=== PATIENT | female | born 1985 | race Two or more races ===

== ENCOUNTER 2017-06-22 16:58 | Emergency (ER) | payer MEDICAID, OTHER ==
[~2017-06-22] VITALS: Ht 152.4 cm; Wt 60.8 kg
--- NOTE | 2017-06-22 17:39 | NUR ---
DR JALLOH AT BEDSIDE FOR EVAL.
[2017-06-22] MEDS ORDERED: IV NS 0.9% 1,000 ML BAG IV ONE (18:00)
[2017-06-22] MEDS ORDERED: METOCLOPRAMIDE HCL 10 MG/2 ML VIAL IV ONE (18:00)
--- NOTE | 2017-06-22 18:00 | NUR ---
IV LINE STARTED BLOOD DRAWN AND SENT TO LAB.
[2017-06-22 18:03] LABS: BASOPHILS % (AUTO) 0.3 % (0.0-2.0); EOSINOPHILS # (AUTO) 0.3 /CMM (0.0-0.7); EOSINOPHILS % (AUTO) 2.6 % (0.0-6.0); HEMATOCRIT 41 % (33-45); HEMOGLOBIN 13.3 g/dL (11.5-14.8); LYMPHOCYTES # (AUTO) 3.9 /CMM (0.8-4.8); LYMPHOCYTES % (AUTO) 40.1 % (20.0-44.0); MEAN CORPUSCULAR HEMOGLOBIN 26 PG (26.0-33.0); MEAN CORPUSCULAR HGB CONC 33 g/dl (31.0-36.0); MEAN CORPUSCULAR VOLUME 80 fL (82-100); MONOCYTES # (AUTO) 0.7 /CMM (0.1-1.30); MONOCYTES % (AUTO) 7.1 % (2.0-12.0); NEUTROPHILS # (AUTO) 4.9 /CMM (1.8-8.9); NEUTROPHILS % (AUTO) 49.9 % (43.0-81.0); PLATELET COUNT (AUTO) 297 /CMM (150-450); RDW COEFFICIENT OF VARIATION 12.5 (11.5-15.0); RED BLOOD CELL COUNT(AUTO) 5.11 MIL/uL (4.0-5.2); WHITE BLOOD COUNT (AUTO) 9.8 K/uL (4.3-11.0)
[2017-06-22] MEDS ORDERED: METOCLOPRAMIDE HCL 10 MG/2 ML VIAL ONE (18:04)
[2017-06-22 18:10] LABS: CALCIUM, SERUM 9.2 mg/dL (8.5-10.1); CREATININE 0.6 mg/dL (0.6-1.3); POTASSIUM 3.8 mmol/L (3.5-5.1)
--- NOTE | 2017-06-22 18:18 | NUR ---
PT TO RADIOLOGY FOR HEAD CT SCAN VIA [facility].
--- NOTE | 2017-06-22 19:27 | NUR ---
Note jimmy in EDM - 06/22/17 at 1928 by JUANY Patient does not wish to proceed with medical care recommended by Dr. Fenton. Patient given information related to possible complications, up to and including , which could occur as a result of leaving the hospital at this time. Patient verbalizes understanding of risks involved due to leaving against medical advice. Patient has signed AMA form.IV removed. Catheter intact and site benign. Pressure and 4x4 applied to site. No bleeding noted.Patient discharged to home in stable condition. Written and verbal after care instructions given. Patient verbalizes understanding of instruction.
--- NOTE | 2017-06-22 19:27 | NUR ---
PT. VERBALIZED UNDERSTANDING OF AFTERCARE INSTRUCTIONS.Patient discharged to home in stable condition. Written and verbal after care instructions given. Patient verbalizes understanding of instruction. IV removed. Catheter intact and site benign. Pressure and 4x4 applied to site. No bleeding noted.
[2017-06-22 19:29] VITALS: BP 133/72
== END 2017-06-22 19:30 | disposition home or self-care (01) ==
LOC: ER 17:03
DX: R51 Headache (principal); R42 Dizziness and giddiness; R11.2 Nausea with vomiting, unspecified; H53.149 Visual discomfort, unspecified
CPT/HCPCS: 36415; 70450; 80048; 84703; 85025; 96374; 99284; A4606; J2765; J7030; Z7610

== ENCOUNTER 2018-04-25 10:23 | Emergency (ER) | payer MEDICAID ==
[~2018-04-25] VITALS: Ht 152.4 cm; Wt 57.2 kg
[2018-04-25 10:23] VITALS: BP 112/75
== END 2018-04-25 11:29 | disposition home or self-care (01) ==
LOC: ER 10:24
DX: G62.9 Polyneuropathy, unspecified (principal)
CPT/HCPCS: 99283; A4606; Z7610

== ENCOUNTER 2021-11-15 00:12 | Emergency (ER) | payer MEDICAID, OTHER ==
[~2021-11-15] VITALS: Ht 165.1 cm; Wt 63.5 kg
--- NOTE | 2021-11-15 00:25 | NUR ---
NENA. DIZZYNESS - ROOM SPINNING AND MID STERNAL CP NON RADIATING X 2300. PATIENT ALERT AND ORIENTED X3. AMBULATORY WITH NON LABORED BREATHING IN BED 11 ON MONITOR.
--- NOTE | 2021-11-15 00:45 | NUR ---
BLOOD COLLECTED AND SENT TO LAB
--- NOTE | 2021-11-15 00:50 | NUR ---
@ BEDSIDE FOR EVAL.
[2021-11-15] MEDS ORDERED: ONDANSETRON HCL/PF 4 MG/2 ML VIAL ONE (00:53)
[2021-11-15] MEDS ORDERED: MECLIZINE HCL 25 MG TABLET ONE (00:53)
[2021-11-15] MEDS ORDERED: IV NS 0.9% 1,000 ML BAG IV ONE (01:00)
[2021-11-15] MEDS ORDERED: ONDANSETRON HCL/PF 4 MG/2 ML VIAL IVP ONE (01:00)
[2021-11-15] MEDS ORDERED: MECLIZINE HCL 12.5 MG TABLET PO ONE (01:00)
--- NOTE | 2021-11-15 01:24 | NUR ---
Note katherinemary in EDM - 11/15/21 at 0254 by FRANTZ Patient does not wish to proceed with medical care recommended by Dr. SOTO. Patient given information related to possible complications, up to and including , which could occur as a result of leaving the hospital at this time. Patient verbalizes understanding of risks involved due to leaving against medical advice. Patient has signed AMA form.
--- NOTE | 2021-11-15 01:25 | NUR ---
Note undone in ED - 11/15/21 at 0254 by FRANTZ IV removed. Catheter intact and site benign. Pressure and 4x4 applied to site. No bleeding noted.
[2021-11-15 01:32] LABS: BASOPHILS % (AUTO) 0.3 % (0.0-2.0); EOSINOPHILS % (AUTO) 2.5 % (0.0-6.0); HEMATOCRIT 40 % (33-45); LYMPHOCYTES # (AUTO) 4.1 K/uL (0.8-4.8); LYMPHOCYTES % (AUTO) 33.4 % (20.0-44.0); MEAN CORPUSCULAR HGB CONC 32 g/dl (31.0-36.0); MEAN CORPUSCULAR VOLUME 78 fL (82-100); MONOCYTES # (AUTO) 0.6 K/uL (0.1-1.30); MONOCYTES % (AUTO) 4.8 % (2.0-12.0); NEUTROPHILS # (AUTO) 7.2 K/uL (1.8-8.9); PLATELET COUNT (AUTO) 240 K/uL (150-450); RED BLOOD CELL COUNT(AUTO) 5.11 MIL/uL (4.0-5.2); WHITE BLOOD COUNT (AUTO) 12.3 K/uL (4.3-11.0)
[2021-11-15 02:05] LABS: CALCIUM, SERUM 8.6 mg/dL (8.5-10.1); CARBON DIOXIDE 26 mmol/L (21-32); CHLORIDE 104 mmol/L (98-107); CREATININE 0.6 mg/dL (0.6-1.3); GLUCOSE 109 mg/dL (74-106); POTASSIUM 4.6 mmol/L (3.5-5.1); SODIUM SERUM 138 mmol/L (136-145); UREA NITROGEN, BLOOD 14 mg/dL (7-18)
[2021-11-15 02:10] LABS: ALANINE AMINOTRANSFERASE 28 U/L (12-78); ALBUMIN 3.8 g/dL (3.4-5.0); ALKALINE PHOSPHATASE 54 U/L (46-116); ASPARTATE AMINOTRANSFERASE 28 U/L (15-37); BILIRUBIN,TOTAL 0.3 mg/dL (0.2-1.0); TOTAL PROTEIN, SERUM 7.2 g/dL (6.4-8.2)
[2021-11-15] MEDS ORDERED: MECL-159 PO (02:29)
[2021-11-15] MEDS ORDERED: ONDA4TAB5 PO (02:29)
[2021-11-15 02:40] VITALS: BP 118/75
--- NOTE | 2021-11-15 02:54 | NUR ---
Patient discharged to home in stable condition. Written and verbal after care instructions given. Patient verbalizes understanding of instruction.
== END 2021-11-15 02:54 | disposition home or self-care (01) ==
LOC: ER 00:15
DX: H81.399 Other peripheral vertigo, unspecified ear (principal); R11.2 Nausea with vomiting, unspecified; R07.89 Other chest pain; Z79.899 Other long term (current) drug therapy
CPT/HCPCS: 36415; 71045; 80048; 80076; 84484; 84702; 85025; 93005; 96361; 96374; 99285; J2405; J7030; J8597